=== PATIENT | female | born 1975 | race Caucasian/White ===

== ENCOUNTER 2016-11-24 09:58 | Day surgery (SDC) | payer MEDICAID, OTHER ==
[~2016-11-24] VITALS: Ht 170.2 cm; Wt 148.8 kg
[2016-11-24] VITALS (20 sets, daily range): BP systolic 98–141; BP diastolic 50–71; PULSE 48–84; RESP 10–20; Ht 170.2 cm; Wt 148.8 kg
[2016-11-24] MEDS: SOD CHLORIDE 0.9% 1,000 ML IV SCH ×2 (06:00→19:20)
[~2016-11-24 09:58] MED LIST: CEFAZOLIN 1 GM INJ ONE; CEFAZOLIN 2 GM/50 ML (PMX) 50 ML IVPB SCH; PROPOFOL 200 MG INJ ONE
[2016-11-24] MEDS ORDERED: albuterol inhaler (10:46)
[2016-11-24 11:17] LABS: ADD SCAN DIFF NO
[2016-11-24 11:18] LABS: BASOPHIL # 0.1 10^3/ul (0.0-0.1); BASOPHILS % 0.6 % (0.0-2.0); EOSINOPHILS # 0.3 10^3/ul (0.0-0.5); EOSINOPHILS % 3.8 % (0.0-7.0); HEMATOCRIT 39.6 % (37.0-47.0); LYMPHOCYTES # 2.8 10^3/ul (0.8-2.9); LYMPHOCYTES % 31.7 % (15.0-51.0); MEAN CORPUSCULAR HEMOGLOBIN 27.5 pg (29.0-33.0); MEAN CORPUSCULAR HGB CONC 32.8 g/dl (32.0-37.0); MEAN CORPUSCULAR VOLUME 83.9 fl (82.0-101.0); MEAN PLATELET VOLUME 10.1 fl (7.4-10.4); MONOCYTE # 0.5 10^3/ul (0.3-0.9); MONOCYTES % 5.4 % (0.0-11.0); NEUTROPHIL # 5.1 10^3/ul (1.6-7.5); NEUTROPHILS % 58.2 % (39.0-77.0); PLATELET COUNT 408 10^3/UL (140-415); RED BLOOD COUNT 4.72 10^6/ul (4.20-5.40); RED CELL DISTRIBUTION WIDTH 14.7 % (11.5-14.5); WHITE BLOOD COUNT 8.8 10^3/ul (4.8-10.8)
[2016-11-24 11:25] LABS: PROTIME 13.2 Sec (12.2-14.2)
[2016-11-24 11:26] LABS: PARTIAL THROMBOPLASTIN TIME 29.3 Sec (25.0-35.0)
[2016-11-24] MEDS ORDERED: ALBU18HF INHALATION (11:27)
[2016-11-24 11:33] LABS: CALCIUM 9.6 mg/dl (8.4-10.2); CREATININE 0.69 mg/dl (0.44-1.00)
[2016-11-24] MEDS ORDERED: MIDAZOLAM 1 MG/ML 2 ML INJ ONE (14:49)
[2016-11-24] MEDS ORDERED: PROPOFOL 20 ML ONE (14:49)
[2016-11-24] MEDS ORDERED: KETOROLAC 30 MG INJ ONE (15:40)
[2016-11-24] MEDS ORDERED: ONDANSETRON 4 MG INJ ONE (15:40)
[2016-11-24] MEDS ORDERED: DEXAMETHASONE 4 MG/ML 1 ML INJ ONE (15:40)
[2016-11-24] MEDS ORDERED: METOCLOPRAMIDE 10 MG INJ ONE (15:40)
[2016-11-24] MEDS ORDERED: GLYCOPYRROLATE 0.4 MG INJ ONE (15:47)
[2016-11-24] MEDS ORDERED: NEOSTIGMINE 3 MG/3 ML SYRINGE ONE (15:47)
[2016-11-24] MEDS ORDERED: METOCLOPRAMIDE 10 MG INJ IV PRN (16:00)
[2016-11-24] MEDS ORDERED: ONDANSETRON 4 MG INJ IV PRN ×2 (16:00→16:30)
[2016-11-24] MEDS ORDERED: hydrALAzine 20 MG INJ IV PRN (16:00)
[2016-11-24] MEDS ORDERED: HYDROmorphONE (0.2 MG/ML) 10ML SYG IV PRN ×2 (16:00)
[2016-11-24] MEDS ORDERED: morphine (1 MG/ML) 10ML SYRINGE IV PRN ×3 (16:00)
[2016-11-24] MEDS ORDERED: DIPHENHYDRAMINE 50 MG INJ IV PRN (16:00)
[2016-11-24] MEDS ORDERED: LABETALOL HCL 20MG INJ IV PRN (16:00)
[2016-11-24] MEDS ORDERED: EPHEDrine SULFATE 50 MG/5 ML SYG IV PRN (16:00)
[2016-11-24] MEDS ORDERED: FENTAnyl 50 MCG/ML VIAL IV PRN ×3 (16:00)
[2016-11-24] MEDS ORDERED: MEPERIDINE 25 MG INJ IV PRN (16:00)
[2016-11-24] MEDS ORDERED: ALBUTEROL 0.083% (NEB) 2.5 MG/3 ML AMP HHN STA (16:19)
--- NOTE | 2016-11-24 16:20 | OPR ---
DATE OF OPERATION: 11/24/2016 PREOPERATIVE DIAGNOSIS: Large left breast cancer. POSTOPERATIVE DIAGNOSIS: Large left breast cancer. OPERATION PERFORMED: Left partial mastectomy and axillary dissection. ANESTHESIA: General. ANESTHESIOLOGIST: Eliseo Avina MD SURGEON: Jian Galo MD ATHLETIC TRAINER: Eugenie Plata MD INDICATIONS FOR PROCEDURE: The patient is a very-unfortunate, 41-year-old female who presented with a large, approximately 4-cm left breast mass, and workup, including biopsy, was positive for invas darrion cancer. She was counseled as to the risks versus benefits of left partial mastectomy, and based on the size of the tumor, an axillary dissection. She consented and was scheduled for surgery. DESCRIPTION OF PROCEDURE: The patient was brought to the operating theater, placed under general en dotracheal tube anesthesia. The left breast and axillary region were prepped and draped in the usua l sterile fashion. Attention was directed to partial mastectomy. A palpable mass was at approximately the 6 o'clock lo cation, approximately 2 to 3 cm from the nipple-areolar border. A curvilinear incision was made dir ectly over the mass. Subcutaneous tissue was dissected with cautery. Skin edges were elevated with skin hooks, and wide circumferential dissection of the tissue associated with the mass took place w ith cautery, taking great care to ensure adequate margin. Specimen was elevated, transected, orient ed, and sent for permanent pathologic analysis. Minimal bleeding was controlled with cautery. Due to the large defect, a decision was made to place a #10 flat Abiodun-Batista drain into the wound. Th is was done by bringing it through the left mid-axillary line. It was cut to size, laid within the wound and secured in place with 2-0 nylon suture in a standard fashion. The skin incision was then closed with 4-0 Vicryl suture in subcuticular fashion. Attention was then directed to performing the axillary dissection. An approximately 5-cm incision w as made in the left axillary hairline. Subcutaneous tissue was dissected with cautery down through the clavipectoral fascia. At this point, it was noted there were several enlarged lymph nodes consi stent with probable metastatic disease. With blunt dissection along the chest wall, the long thorac ic vein was identified and kept out of harm's way. More superiorly, the axillary vein and thoracodo rsal neurovascular bundles were identified, dissected throughout their course, kept out of harm's wa y. Node-bearing tissue between the long thoracic nerve and thoracodorsal nerve was then meticulousl y harvested using the LigaSure device. Specimen was transected and sent for permanent pathologic an alysis. The wound was irrigated. Minimal bleeding was controlled with cautery. A #10 [place] on-Batista drain was then brought through the left mid-axillary line, cut to size and laid within the axilla. It was secured in place with 2-0 nylon suture in the standard fashion. The skin was then r eapproximated with a 4-0 Vicryl suture in subcuticular fashion; Dermabond was applied to both incisi ons. The patient tolerated procedure well. The estimated blood loss was 30 mL. There were no comp lications and the patient was transported in stable condition to the recovery room, where circumfere ntial compression dressing was applied. Dictated By: JIAN HUIZAR/AKANKSHA Conf#: [id number] DID#: [id number]
[2016-11-24] MEDS ORDERED: ALBUTEROL 0.083% (NEB) 2.5 MG/3 ML AMP ONE (16:22)
[2016-11-24] MEDS ORDERED: morphine 2 MG INJ IV PRN (16:30)
[2016-11-24] MEDS ORDERED: ACETAMINOPHEN 1000MG/100ML IV 100 ML IVPB PRN (16:30)
[2016-11-24] MEDS: HYDROmorphONE (0.2 MG/ML) 10ML SYG IV PRN ×4 (16:31→16:53)
[2016-11-24] MEDS ORDERED: ALBUTEROL/IPRATROPIUM (NEB) 3 ML AMP HHN PRN (17:30)
--- NOTE | 2016-11-24 17:47 | HP ---
DATE OF ADMISSION: 11/24/2016 HISTORY OF PRESENT ILLNESS: The patient is a 41-year-old pleasant female patient with history of as thma. She does not take routine medication except from the rescue inhaler when needed. The patient presented with large 4 cm left breast mass. The workup including biopsy revealed invasive ductal c arcinoma. The patient was evaluated by Dr. Galo in general surgery consultation, and the patient w as brought to the hospital and underwent left partial mastectomy with axillary dissection. Postoper atively, the patient experienced significant pain and also had some drainage from JPs x2. The patie nt was admitted for further evaluation and management. PAST MEDICAL HISTORY: Per HPI. PAST SURGICAL HISTORY: The patient is status post bilateral breast reduction many years ago. FAMILY HISTORY: Negative for any history of ovarian or breast cancer. SOCIAL HISTORY: The patient lives at home with her family. The patient denies any tobacco use, den ies any alcohol use, denies any illicit drug use. ALLERGIES: THE PATIENT IS ALLERGIC TO TAPE. HOME MEDICATIONS: Include Ventolin HFA. REVIEW OF SYSTEMS: A 12-point review of systems is negative unless what mentioned in the HPI. PHYSICAL EXAMINATION: GENERAL: Well-developed, obese female who currently is awake and alert. VITAL SIGNS: Temperature is 97.8, pulse is 52, blood pressure is 116/66, respiratory rate 13, oxyge n saturation 97% on 4 liters nasal cannula. HEENT: Head is atraumatic, normocephalic. Pupils equal, round, reactive to light and accommodation . Oral mucosa is pink and moist. NECK: Supple, no cervical lymphadenopathy, no thyromegaly. CHEST: Lungs clear bilaterally. There are no rhonchi, wheezes, rales noted. CARDIOVASCULAR: Normal S1, S2. No murmurs, gallops, clicks, or rubs noted. The patient has surgic al dressing with left axillary Abiodun-Batista x2 with serous drainage. ABDOMEN: Round, soft, nondistended, nontender. Bowel sounds present. EXTREMITIES: There is no edema, clubbing, cyanosis. Pulses equal bilaterally 2+. SKIN: There is no rash, petechiae noted. NEUROLOGIC: The patient is awake, alert, and oriented x4. No focal deficits noted. Motor strength 5/5 in all extremities. LABORATORY DATA: On admission, CBC: White blood cells 8.8, hemoglobin 13.0, hematocrit 39.6, platel ets 408. Chemistry: Sodium is 143, potassium 4.0, chloride 105, carbon dioxide 25, anion gap 17, B UN is 15, creatinine 0.69, glucose 100, calcium 9.6. PT 13.2, INR is 1, PTT is 29.3. ASSESSMENT AND PLAN: 1. Large left breast cancer status post left partial mastectomy and axillary dissection. Continue Tylenol and [place] p.r.n. for pain and Zofran p.r.n. for nausea. Continue IV fluids. Monitor electr olytes. Incentive spirometer q. 1 hour while the patient is awake. 2. Asthma by history. We will continue breathing treatment p.r.n. for shortness of breath. 3. Obesity. We will continue sequential compression devices for deep venous thrombosis prophylaxis. Further rec ommendations based on clinical course. Plan of care discussed with Dr. Lei. Dictated By: DOMO SY NANOTECHNOLOGY ENGINEERING TECHNOLOGIST for JI LEI MD SR/NTS Conf#: [id number] DID#: [id number]
[2016-11-24] MEDS: D5W-0.45 NACL + KCL 20 MEQ 1,000 ML IV SCH ×2 (19:18→23:34)
[2016-11-25 07:32] VITALS: BP 129/67; RESP 20
[2016-11-25] MEDS ORDERED: HYDROCODONE/APAP (5/325) TAB PO PRN (08:00)
[2016-11-25] MEDS: HYDROCODONE/APAP (5/325) TAB PO PRN ×2 (08:09→15:47)
[2016-11-25 08:49] LABS: ADD SCAN DIFF NO
[2016-11-25 09:06] LABS: BASOPHILS % 0.2 % (0.0-2.0); EOSINOPHILS % 0.2 % (0.0-7.0); HEMATOCRIT 37.5 % (37.0-47.0); HEMOGLOBIN 11.9 g/dl (12.0-16.0); LYMPHOCYTES # 2.6 10^3/ul (0.8-2.9); LYMPHOCYTES % 21.6 % (15.0-51.0); MEAN CORPUSCULAR HEMOGLOBIN 26.9 pg (29.0-33.0); MEAN CORPUSCULAR HGB CONC 31.7 g/dl (32.0-37.0); MEAN CORPUSCULAR VOLUME 84.8 fl (82.0-101.0); MEAN PLATELET VOLUME 9.9 fl (7.4-10.4); MONOCYTE # 0.6 10^3/ul (0.3-0.9); MONOCYTES % 5.2 % (0.0-11.0); NEUTROPHIL # 8.8 10^3/ul (1.6-7.5); NEUTROPHILS % 72.5 % (39.0-77.0); PLATELET COUNT 375 10^3/UL (140-415); RED BLOOD COUNT 4.42 10^6/ul (4.20-5.40); RED CELL DISTRIBUTION WIDTH 14.9 % (11.5-14.5); WHITE BLOOD COUNT 12.2 10^3/ul (4.8-10.8)
[2016-11-25 09:25] LABS: POTASSIUM 4.2 mmol/L (3.5-5.1)
[2016-11-25 09:28] LABS: CREATININE 0.71 mg/dl (0.44-1.00)
[2016-11-25 09:29] LABS: CALCIUM 8.9 mg/dl (8.4-10.2)
--- NOTE | 2016-11-25 14:02 | PN ---
Date/Time of Note Date/Time of Note DATE: 11/25/16 TIME: 14:00 Assessment/Plan VTE Prophylaxis VTE Prophylaxis Intervention: SCD's Lines/Catheters IV Catheter Type (from Nrsg): Saline Lock Assessment/Plan Assessment/Plan 1. Large left breast cancer status post left partial mastectomy and axillary dissection. Continue Tylenol and [place] p.r.n. for pain and Zofran p.r.n. for nausea. Continue IV fluids. Monitor electrolytes. Incentive spirometer q. 1 hour while the patient is awake. 2. Asthma by history. We will continue breathing treatment p.r.n. for shortness of breath. 3. Obesity.- BMI 51.4 - weight management - dietary consult We will continue sequential compression devices for deep venous thrombosis prophylaxis. Further recommendations based on clinical course. Plan of care discussed with Dr. Miller. Subjective 24 Hr Interval Summary Eyes: no complaints ENT: no complaints Respiratory: no complaints Cardiovascular: no complaints Gastrointestinal: no complaints Genitourinary: no complaints Musculoskeletal: no complaints Skin: no complaints Neurologic: no complaints Endocrine: no complaints Lymphatic: no complaints Psychological: no complaints Immunologic: no complaints Exam/Review of Systems Vital Signs Vitals Vital Signs Date Time Temp Pulse Resp B/P Pulse Ox O2 Delivery O2 Flow Rate FiO2 11/25/16 07:55 84 18 98 Nasal Cannula 1.0 11/25/16 07:32 98.8 129/67 Intake and Output 11/24/16 11/24/16 11/25/16 14:59 22:59 06:59 Intake Total 750 ml 2000 ml Output Total 30 ml 820 ml Balance 720 ml 1180 ml Exam Constitutional: alert Psych: nl mood/affect Eyes: EOMI, nl sclera ENMT: nl external ears & nose Neck: non-tender Respiratory: clear to auscultation Cardiovascular: nl pulses Gastrointestinal: non-tender, soft Musculoskeletal: nl extremities to inspection Extremities: normal pulses Neurological: nl mental status, nl speech Skin: other (status post left partial mastectomy and axillary dissection) Results Result Diagram: 11/25/16 0835 11/25/16 0835 Results 24 hrs Laboratory Tests Test 11/25/16 08:35 White Blood Count 12.2 #H Red Blood Count 4.42 Hemoglobin 11.9 L Hematocrit 37.5 Mean Corpuscular Volume 84.8 Mean Corpuscular Hemoglobin 26.9 L Mean Corpuscular Hemoglobin Concent 31.7 L Red Cell Distribution Width 14.9 H Platelet Count 375 Mean Platelet Volume 9.9 Neutrophils % 72.5 Lymphocytes % 21.6 Monocytes % 5.2 Eosinophils % 0.2 Basophils % 0.2 Nucleated Red Blood Cells % 0.0 Neutrophils # 8.8 H Lymphocytes # 2.6 Monocytes # 0.6 Eosinophils # 0.0 Basophils # 0.0 Nucleated Red Blood Cells # 0.0 Sodium Level 138 Potassium Level 4.2 Chloride Level 105 Carbon Dioxide Level 25 Anion Gap 12 Blood Urea Nitrogen 13 Creatinine 0.71 Glucose Level 105 Calcium Level 8.9 Medications Medications Current Medications Sodium Chloride (NS) 1,000 ml @ 75 mls/hr [id number] IV ; Start 11/24/16 at 06:00 Ondansetron HCl 4 mg 4 mg Q6H PRN IV NAUSEA AND/OR VOMITING; Start 11/24/16 at 16:30 Potassium Chloride/Dextrose/ Sod Cl (D5-1/2ns + KCl 20 Meq) 1,000 ml @ 125 mls/ hr Q8H IV Last administered on 11/24/16 23:34; Admin Dose 125 MLS/HR; Start at 16:01 Morphine Sulfate 2 mg 2 mg Q1H PRN IV PAIN Last administered on 11/24/16 19:18 ; Admin Dose 2 MG; Start 11/24/16 at 16:30 Acetaminophen (Ofirmev 1000mg/ 100ml Iv) 100 ml @ 400 mls/hr Q6H PRN IVPB PAIN ; Start 11/24/16 at 16:30 Acetaminophen/ Hydrocodone Bitart ([place] (5/325)) 1 tab Q4H PRN PO PAIN LEVEL 1 -5 Last administered on 11/25/16 08:09; Admin Dose 1 TAB; Start 11/25/16 at 08: 00 Acetaminophen/ Hydrocodone Bitart ([place] (5/325)) 2 tab Q4H PRN PO PAIN LEVEL 7 -10; Start 11/25/16 at 08:00 TEREZA KENNY Nov 25, 2016 14:02
--- NOTE | 2016-11-25 14:03 | PDOCDIS ---
Discharge Instructions CONDITION Patient Condition: Stable HOME CARE INSTRUCTIONS: Diet Instructions: Regular ACTIVITY: Activity Restrictions: Slowly Increase Activity Rest between Activity Avoid heavy lifting Do not operate Power Tool Avoid Heavy Housework Keep Limb Elevated Bathing Restrictions: TEREZA Petersen Nov 25, 2016 14:03
[2016-11-25] MEDS ORDERED: PANT40TA3 PO (14:05)
[2016-11-25] MEDS ORDERED: HYDR-3498 PO (14:05)
[2016-11-25] MEDS ORDERED: DOCU-144 PO (14:05)
--- NOTE | 2016-11-25 17:39 | PN ---
DATE: 11/25/2016 Postoperative day #1 status post left breast partial mastectomy with axillary dissection SUBJECTIVE: Feels okay. No complaint. Pain is under control. OBJECTIVE VITAL SIGNS: Temperature 98.8, heart rate 84, respirations 18, blood pressure 129/67, saturation 94 % to 98% on room air. BREASTS: Dressing is intact. Abiodun-Batista drains are draining serosanguineous fluid. LABORATORY DATA: WBC 12,200 today with 72% segmented, hemoglobin 11.9, hematocrit 37.5. Chemistry reviewed. Creatinine, sodium and potassium within normal limits. Abiodun-Batista drainage since yesterday 10 mL and 15 mL, respectively. IMPRESSION: Status post partial mastectomy with axillary dissection, day #1. The patient is stable , doing fine. PLAN: The patient can be discharged home. The nurse is going to teach the patient care of the Dane son-Batista drains, how to empty them and also record them. The patient to call Dr. Galo' office for followup. Dictated By: LIZ MYERS MD PS/AKANKSHA Conf#: [id number] DID#: [id number]
== END 2016-11-25 16:00 | disposition home or self-care (01) ==
LOC: SDS 09:58 → MS1 18:30 → SDS 11-25 16:00
PROVIDERS: ATTEND Surgery Surgical Oncology
DX: C50.912 Malignant neoplasm of unspecified site of left female breast (principal); Z17.0 Estrogen receptor positive status [ER+]; J45.909 Unspecified asthma, uncomplicated; E66.9 Obesity, unspecified; Z68.43 Body mass index [BMI] 50.0-59.9, adult; Z91.048 Other nonmedicinal substance allergy status
CPT/HCPCS: 19302; 80048; 85025; 85610; 85730; 88307; 94640; 94664; J0690; J1100; J1170; J1885; J2250; J2270; J2405; J2710; J2765; J3010; J3480; J7030; Z7512; Z7610